=== PATIENT | female | born 1970 | race Caucasian/White ===

== ENCOUNTER → 2018-09-23 07:28 | Day surgery (SDC) | payer OTHER ==
[~2018-09-23 07:28] MED LIST: Buffered Lidocaine 1% SYRIN* 1 ML/SYRINGE INTRADERM ONE; Dexamethasone IV* 4 MG/ML 1 ML (4 MG) IV SLOW PU ONE; Dexamethasone IV* 4 MG/ML 1 ML (4 MG) ONE; DiMENhydriNATE IV* 50 MG/ML VIAL IV PUSH PRN; Famotidine IV* 10 MG/ML 2 ML (20 mg) IV ONE; Famotidine IV* 10 MG/ML 2 ML (20 mg) ONE; Glycopyrrolate IV* 0.2 MG/ML 1 ML VIAL ONE; Ketorolac INJ* 30 MG/ML 1 ML VIAL ONE; Lactated Ringers 1000 ML Bag* 1,000 ML IV SCH; Lidocaine 2% PF * 5 ML VIAL ONE; Midazolam* 1 MG/ML 2 ML VIAL (2 MG) ONE; Naloxone* 0.4 MG/ML 1 ML VIAL IV PRN; Ondansetron INJ* 2 MG/ML VIAL ONE; Propofol* 10 MG/ML 20 ML BTL ONE; Silver Nitrate/Potassium Nitr* 1 EA STICK ONE; fentaNYL* 50 MCG/ML 2 ML VIAL (100 MCG VIAL) IV PRN; fentaNYL* 50 MCG/ML 2 ML VIAL (100 MCG VIAL) ONE
[2018-09-23 09:09] LABS: ABS Eosinophils 0.1 10^3/ul (0-0.6); ABS Lymphocytes 1.6 10^3/ul (1.0-4.8); ABS Monocytes 0.4 10^3/ul (0-0.8); ABS Neutrophils 2.4 10^3/ul (1.5-7.7); Eosinophil % 2.3 %; Hematocrit 36 % (35-47); Hemoglobin 12.1 g/dL (12.0-16.0); Lymphocyte % 34.7 %; Mean Corpuscular HGB Conc 34 g/dL (31-36); Mean Corpuscular Hemoglobin 31 pg (27-31); Mean Corpuscular Volume 92 fL (80-97); Mean Platelet Volume 8.8 fL (7.4-10.4); Platelet Count 243 10^3/uL (150-450); Red Blood Count 3.86 10^6 /uL (3.70-4.87); Red Cell Distribution Width 13 % (10-15); White Blood Count 4.6 10^3/uL (3.5-10.8)
--- NOTE | 2018-09-23 10:32 | OP ---
OPERATIVE REPORT: DATE OF OPERATION: 09/23/18 DATE OF : 70 SURGEON: Quique Rodriguez MD. LENS GENERATOR: None. ANESTHESIA: General, endotracheal tube. PRE-OP DIAGNOSES: Menorrhagia and endometrial polyp. POST-OP DIAGNOSES: Menorrhagia and endometrial polyp. OPERATIVE PROCEDURE: D and C, hysteroscopy, MyoSure resection of the polyp. COMPLICATIONS: None. ESTIMATED BLOOD LOSS: Minimal. SPECIMEN: Includes endometrium. FINDINGS: On exam under anesthesia, uterus was mid position and sounded to 9 cm. On hysteroscopy, th e cavity appeared normal, except for a small sessile polyp on the posterior wall, approximately 0.5 c m in size. DESCRIPTION OF PROCEDURE: The patient was identified, procedure was identified as a D and C, hystero scopy. The patient was taken to the operating room, prepped and draped in the usual fashion in the d orsal lithotomy position under general anesthesia. Two single-tooth tenaculum were placed on the ant erior lip of the cervix. Cervix was easily dilated up to a #26 Robin dilator. The MyoSure hysterosco pe was inserted. The above findings were noted. The MyoSure LITE was passed through the obturator a nd using this the small sessile polyp was removed. All instruments were removed from the vagina. The hysteroscope was removed and a sharp curette was inserted and sharp curettage performed until a grit ty sensation was felt throughout the circumference and a good specimen had been obtained. At the end of the procedure, all sponge and instrument counts were correct and the patient returned to recovery room in stable condition. [id number]/[facility] #: [id number]
[2018-09-23 11:49] VITALS: BP 128/87
== END | disposition home or self-care (01) ==
LOC: OR 07:28
PROVIDERS: ATTEND Obstetrics & Gynecology
DX: N92.0 Excessive and frequent menstruation with regular cycle (principal); N84.0 Polyp of corpus uteri
CPT/HCPCS: 36415; 81025; 85025; 86850; 86900; 86901; 88305; A9270-GY; J1100; J1885; J2250; J2405; J2704; J3010